=== PATIENT | female | born 1975 | race Caucasian/White ===

== ENCOUNTER 2019-01-29 21:12 | Emergency (ER) | payer BC ==
[~2019-01-29] VITALS: Ht 157.5 cm; Wt 88.9 kg
[2019-01-29 21:20] VITALS: BP_SYST 127
--- NOTE | 2019-01-30 00:27 | NUR ---
PT AMBULATORY TO BED HALLWAY
--- NOTE | 2019-01-30 00:30 | NUR ---
Patient to ER via triage for evaluation of left shoulder pain that patient has had for over 5 years due to overuse. Patient denies any known trauma/injury, patient is awake, alert and oriented in no acute distress, able to ambulate to hallway bed without difficulty with slow, steady gait. Vital signs stable, respirations even and unlabored, skin warm and dry to touch. Awaiting evaluation by ER MD, will continue to observe and assess.
--- NOTE | 2019-01-30 00:35 | NUR ---
Patient got up off of hallway bed 1 and walked out of ER without being seen by ER MD. Dr Aggarwal and charge nurse notified.
--- NOTE | 2019-01-30 00:50 | NUR ---
Patient decided that she no longer wished to be seen in ER and left without being seen by ER MD.
== END 2019-01-30 00:50 | disposition left against medical advice (07) ==
LOC: SED 21:12
DX: M25.512 Pain in left shoulder (principal); Z53.21 Procedure and treatment not carried out due to patient leaving prior to being seen by health care provider